=== PATIENT | female | born 1995 | race American Indian/Alaskan Native ===

== ENCOUNTER 2017-09-29 03:32 | Emergency (ER) | payer BC ==
[2017-09-29 03:34] VITALS: BMI 23.1
--- NOTE | 2017-09-29 03:52 | ED PDOC ---
Arrival/HPI - General Chief Complaint: Female Genitourinary Time Seen by Provider: 09/29/17 03:47 Historian: Patient - History of Present Illness Narrative History of Present Illness (Text): 09/29/17 04:07 22 year old female, whose past medical history includes hepatitis A and IUD ( placed May), presents complaining of vaginal bleeding for the past 3 days. Patient reports the bleeding began after having sex. She states she's worried it may be an issue with her IUD and reports her hvac maintenance technician is "booked" to go in for a evaluation. Patient believes the amount of bleeding is "abnormal". Patient reports her last menstrual period was 09/11/17. Patient denies any pain , fever, chills, chest pain, shortness of breath, nausea, vomiting, diarrhea, abdominal pain, urinary symptoms, back pain, neck pain, headache, dizziness, or any other complaints. Blow Torch Operator: Dr. Ever Lou Time/Duration: Other (3 days) Symptom Onset: Sudden Symptom Course: Unchanged Activities at Onset: Light Past Medical History - Provider Review Nursing Documentation Reviewed: Yes - Infectious Disease Hx of Infectious Diseases: None - Tetanus Immunization Tetanus Immunization: Unknown - Past Medical History Past Medical History: No Previous - Psychiatric Hx Psychophysiologic Disorder: No Hx Depression: No Hx Emotional Abuse: No Hx Physical Abuse: No Hx Substance Use: No - Past Surgical History Past Surgical History: No Previous - Surgical History Other/Comment: DNC and IUD done at the same time 05/2017 - Anesthesia Hx Anesthesia: Yes Hx Anesthesia Reactions: No Hx Malignant Hyperthermia: No - Suicidal Assessment Feels Threatened In Home Enviroment: No Family/Social History - Physician Review Nursing Documentation Reviewed: Yes Family/Social History: No Known Family HX Smoking Status: Never Smoked Hx Alcohol Use: Yes (SOCIALLY) Frequency of alcohol use: Socially Hx Substance Use: No Hx Substance Use Treatment: No Allergies/Home Meds Allergies/Adverse Reactions: Allergies No Known Allergies Allergy (Verified 09/29/17 03:47) Home Medications: Home Meds Medication Instructions Recorded Confirmed No Known Home Med 12/28/16 09/29/17 Review of Systems - Review of Systems Constitutional: absent: Fatigue, Fevers, Other (Chills) Gastrointestinal: absent: Abdominal Pain, Diarrhea, Nausea, Vomiting Genitourinary Female: Vaginal Bleeding Musculoskeletal: absent: Back Pain, Neck Pain Neurological: absent: Dizziness Physical Exam Vital Signs Reviewed: Yes Vital Signs Temp Pulse Resp BP Pulse Ox 09/29/17 03:42 97.9 F 85 17 142/77 100 Temperature: Afebrile Blood Pressure: Normal Pulse: Regular Respiratory Rate: Normal Appearance: Positive for: Well-Appearing, Non-Toxic, Comfortable Pain Distress: None Mental Status: Positive for: Alert and Oriented X 3 - Systems Exam Head: Present: Atraumatic, Normocephalic Conjunctiva: Present: Normal Mouth: Present: Moist Mucous Membranes Respiratory/Chest: No: Respiratory Distress, Accessory Muscle Use Abdomen: Present: Normal Bowel Sounds. No: Tenderness, Distention, Peritoneal Signs Genitourinary/Pelvic Exam: Present: Normal External Genitalia, Vaginal Bleeding (minimal), Cervical os Closed, Other (Strings of the IUD present. No protrusion of the device seen on speculum exam or palpable on bimanual exam. (Chaperoned by EMT Edna)). No: Vaginal Discharge, Vaginal Lesions, Adenexal Tenderness, Adenexal Mass, Cervical Motion Tendernes, Odor Neurological: Present: GCS=15, Speech Normal Skin: Present: Warm, Dry, Normal Color. No: Rashes Psychiatric: Present: Alert, Oriented x 3, Normal Insight, Normal Concentration Medical Decision Making ED Course and Treatment: 09/29/17 03:54 Impression: 22 year old female presents complaining of vaginal bleeding for they past 3 days. Patient has a IUD placed. Plan: -- Labs -- Urinalysis -- Reassess and disposition Progress Notes: 09/29/17 04:18 Pelvic exam performed by me, chaperoned by EMT Edna, which showed strings of the IUD present and no protrusion of the device. 09/29/17 04:25 HCG is negative. Exam with IUD strings in place. Patient is concerned regarding IUD placement. It is 4:26 am at this time. Informed the patient that I could keep her in the ED till ultrasound opens at 7 am to confirm placement, but she declined and said she will see her hvac maintenance technician in the morning and return if unable to do so. Will d/c. - Lab Interpretations I have reviewed the lab results: Yes - Scribe Statement The provider has reviewed the documentation as recorded by the Josefina Acosta Provider Scribe Attestation: All medical record entries made by the Scribe were at my direction and personally dictated by me. I have reviewed the chart and agree that the record accurately reflects my personal performance of the history, physical exam, medical decision making, and the department course for this patient. I have also personally directed, reviewed, and agree with the discharge instructions and disposition. Disposition/Present on Arrival - Present on Arrival Any Indicators Present on Arrival: No History of DVT/PE: No History of Uncontrolled Diabetes: No Urinary Catheter: No History of Decub. Ulcer: No History Surgical Site Infection Following: None - Disposition Have Diagnosis and Disposition been Completed?: Yes Diagnosis: Vaginal bleeding, IUD check up Disposition: HOME/ ROUTINE Disposition Time: 04:30 Patient Plan: Discharge Patient Problems: Current Active Problems Problem Status Onset IUD check up Acute Vaginal bleeding Acute Condition: GOOD Additional Instructions: Follow up with your hvac maintenance technician today. Return to the emergency department if any new concerning symptoms. Referrals: Ever Lou MD [Staff Provider] - Follow up with primary Forms: [employer] (Guyanese)
[2017-09-29 04:46] VITALS: BP 127/75; PULSE 70; RESP 16; TEMP 98.1; O2SAT 99
== END 2017-09-29 04:53 | disposition home or self-care (01) ==
LOC: ED 03:32
DX: N93.9 Abnormal uterine and vaginal bleeding, unspecified (principal); Z30.431 Encounter for routine checking of intrauterine contraceptive device